=== PATIENT | female | born 1960 | race Caucasian/White ===

== ENCOUNTER 2017-11-21 09:44 | Outpatient (REF) | payer BC, SELFPAY ==
--- NOTE | 2017-11-21 09:20 | SKI_PTH ---
PATIENT: Holly Diana LOC: [facility] U#:[id number] AGE/SX: 57/F ROOM: RE11/21/[address]: Tanner Ortega DO : 1960 BED: DIS: 11/21/2017 SPEC #: [id number] RECD: 11/21/17 12:45 STATUS: CHRISTOPH WARREN #: [id number] STEF: 11/21/17 09:[address]: Tanner Ortega DEPT: Surgical Specimen RECD BY: Cassandra Rodriguez Tissues: 1 - SKIN BIOPSY(SHAVE/PUNCH) Procedures: SKIN LEVEL 4 Comments: [id number]
== END 2017-11-21 10:04 ==
LOC: LBN 09:44
PROVIDERS: PCP Emergency Medicine; Visit Provider Emergency Medicine
DX: L82.1 Other seborrheic keratosis (principal)
CPT/HCPCS: 88305

== ENCOUNTER 2018-02-19 01:36 | Outpatient (CLI) | payer BC, SELFPAY ==
--- NOTE | 2018-02-19 09:41 | DI.RAD_ITS ---
SYMPTOM/DIAGNOSIS: LEFT CHEST RALES R09.89 PA AND LATERAL CHEST: Comparison is made with 01 Apr 2011. The cardiac and mediastinal contours have a normal appearance. The lungs are well inflated and clear. No infiltrate or effusion is seen. There are no visible interstitial or emphysematous changes. IMPRESSION: Negative chest x-ray.
== END 2018-02-19 01:56 ==
PROVIDERS: PCP Emergency Medicine; Visit Provider Emergency Medicine
DX: R09.89 Other specified symptoms and signs involving the circulatory and respiratory systems (principal)
CPT/HCPCS: 71046

== ENCOUNTER 2018-02-26 01:56 | Outpatient (CLI) | payer BC, SELFPAY ==
[2018-02-26 09:16] LABS: Cholesterol 201 mg/dL (50-200); HDL Cholesterol 91 mg/dL (40-60); LDL CHOLESTEROL 94 mg/dL (<100); TSH 4.77 uIU/mL (0.358-3.74); Triglyceride 50 mg/dL (30-150)
== END 2018-02-26 02:16 ==
PROVIDERS: PCP Emergency Medicine; Visit Provider Student in an Organized Health Care Education/Training Program
DX: I47.1 Supraventricular tachycardia (principal)
CPT/HCPCS: 36415; 80061; 83721; 84443

== ENCOUNTER 2019-02-22 09:47 | Outpatient (CLI) | payer BC, SELFPAY | END 2019-02-22 10:07 | PROVIDERS: PCP Emergency Medicine; Visit Provider Nurse Practitioner | DX: R79.89 Other specified abnormal findings of blood chemistry (principal) | CPT/HCPCS: 36415; 84443 ==

== ENCOUNTER 2019-07-28 20:53 | Outpatient (REF) | payer BC, SELFPAY ==
[2019-07-28 20:39] LABS: TSH 1.82 uIU/mL (0.36-3.74)
== END 2019-07-28 21:13 ==
LOC: LBN 20:53
PROVIDERS: PCP Emergency Medicine; Visit Provider Nurse Practitioner Family
DX: R00.2 Palpitations (principal)
CPT/HCPCS: 84443

== ENCOUNTER 2019-08-03 01:43 | Outpatient (CLI) | payer BC, SELFPAY ==
--- NOTE | 2019-08-03 07:00 | DI.CT_ITS ---
EXAM: CT ABDOMEN PELVIS W CLINICAL HISTORY: RT SIDE ABD PAIN,R10.9 TECHNIQUE: Imaging Protocol: Axial computed tomography images with coronal and sagittal reformatted images were created and reviewed CONTRAST MATERIAL: Intravenous: Omnipaque 350 Contrast volume:83 mL Oral: Yes COMPARISON: CT ABD PELVIS WITH CONTRAST from 11/15/2010 CT ABD PELVIS WO CONTRAST from 04/01/2011 FINDINGS: ABDOMEN: Lung Bases: Normal where visualized. Liver: Normal density. No measurable mass. Several simple cysts. Portal, Superior Mesenteric, and Splenic Veins: Unremarkable. Gallbladder and Biliary Tract: No radiodense calculus or dilation. Pancreas: Normal density, no abnormal calcifications or inflammatory process. Spleen: Normal. Adrenals: No masses seen. Kidneys: Normal size, contour and axis. No radiodense stones or obstructive uropathy. No masses seen. Abdominal Aorta: Abdominal portion non-dilated. Atherosclerosis. Bowel: No obstruction or bowel wall thickening. No evidence of acute appendicitis. Peritoneal Cavity: No ascites, collection or mesenteric inflammatory response. Lymph Nodes: Within normal limits. Bones: Unremarkable. Soft Tissues: Unremarkable. PELVIS: Bladder: Symmetric distention, no gross wall thickening. Reproductive Organs: Status post hysterectomy. Lymph Nodes: Within normal limits. Bones: Within normal limits. IMPRESSION: No acute abdominal or pelvic process. RADIATION DOSE DELIVERED: 902.83mGy.cm Total DLP DATA REPOSITORY: All CT scans at this facility are submitted to the National Radiology Data Registry (NRDR) Dose Index Registry (DIR) with the [employer] (ACR). RADIATION OPTIMIZATION: All CT scans at this facility use at least one of these dose optimization te chniques: automated exposure control; mA and/or kV adjustment per patient size (includes targeted exa ms where dose is matched to clinical indication); or iterative reconstruction.
[2019-08-03] MEDS: Omnipaque 350 MG/ML 50 ML BTL PO (10:01)
[2019-08-03 10:10] LABS: CREATININE 1.12 mg/dL (0.55-1.02); Estimated GFR 49.62 (mL/min/1.73m2)
[2019-08-03] MEDS: Omnipaque 350 MG/ML 100 ML BTL IJ (10:37)
[2019-08-03] MEDS: Normal Saline Flush 10 ML SYR IVP (10:37)
== END 2019-08-03 02:03 ==
PROVIDERS: PCP Emergency Medicine; Visit Provider Nurse Practitioner Family
DX: R10.11 Right upper quadrant pain (principal); K76.89 Other specified diseases of liver
CPT/HCPCS: 74177; 82565; J3490; Q9967

== ENCOUNTER 2019-08-04 01:12 | Outpatient (CLI) | payer BC, SELFPAY | END 2019-08-04 01:32 | PROVIDERS: PCP Emergency Medicine; Visit Provider Nurse Practitioner Family | DX: I47.1 Supraventricular tachycardia (principal) | CPT/HCPCS: 93225 ==

== ENCOUNTER 2019-08-06 15:58 | Outpatient (CLI) | payer BC, SELFPAY ==
--- NOTE | 2019-08-10 08:53 | W.HOLTRPT ---
Date of service: 08/10/19 Time of Service: 08:53 Holter Monitor Report Holter Monitor Note: There is a 48-hour Holter monitor ordered for the indication of tachycardia. ?The patient was in normal sinus rhythm for the majority of the recording. Average heart rate was 78 bpm with a maximum heart rate of 137 bpm. ?There was 5 episodes of SVT with the longest lasting 4 beats. There were rare PACs. ?There were 0 episodes of ventricular tachycardia and 5 single PVCs. ?There were 0 episodes of atrial fibrillation no pauses greater than 3 seconds and no evidence of high degree heart block.
== END 2019-08-06 16:18 ==
PROVIDERS: PCP Emergency Medicine; Visit Provider Nurse Practitioner Family
DX: I47.1 Supraventricular tachycardia (principal)
CPT/HCPCS: 93226

== ENCOUNTER 2019-08-13 01:31 | Outpatient (CLI) | payer BC, SELFPAY ==
[2019-08-13 08:44] LABS: HCT 38.5 % (36.0-46.0); HGB 12.8 g/dL (12.0-15.5); Mean Corp. HGB Concentration 33.2 g/dL (32.0-36.0); Mean Corpuscular Volume 90.2 fL (80-95); Mean Platelet Volume 9.7 fL (8.0-11.0); Platelet Count 183 x1000/uL (130-400); RBC 4.27 m/cumm (4.00-5.20); White Blood Cell Count 3.95 k/cumm (4.4-10.8)
[2019-08-13 09:46] LABS: ALT 27 U/L (14-59); AST 19 U/L (15-37); Albumin 3.8 g/dL (3.4-5.0); Alkaline Phosphatase 62 U/L (46-116); Amylase 52 U/L (25-115); Anion Gap 4.5 mmol/L (3-11); BUN 19 mg/dL (7-18); Bilirubin, Total 0.4 mg/dL (0.2-1.0); CO2 31.5 mmol/L (21.0-32.0); CREATININE 1.17 mg/dL (0.55-1.02); Calcium 9.2 mg/dL (8.5-10.1); Chloride 103 mmol/L (98-107); Estimated GFR 47.18 (mL/min/1.73m2); Glucose 90 mg/dL (74-106); Lipase 178 U/L (73-393); Potassium 4.1 mmol/L (3.5-5.1); Sodium 139 mmol/L (136-145); Total Protein 6.9 g/dL (6.4-8.2)
== END 2019-08-13 01:51 ==
PROVIDERS: PCP Emergency Medicine; Visit Provider Emergency Medicine
DX: R10.9 Unspecified abdominal pain (principal)
CPT/HCPCS: 36415; 80053; 83690; 85027; 82150

== ENCOUNTER 2019-12-29 15:51 | Outpatient (CLI) | payer BC, SELFPAY ==
--- NOTE | 2019-12-29 13:25 | DI.RAD_ITS ---
EXAM: XR HIP RT COMPLETE AP PELVIS CLINICAL HISTORY: right hip pain. TECHNIQUE: 2D digital imaging was performed. COMPARISON: No exams were available for comparison FINDINGS: BONES: No acute fracture is present. No bony destructive lesion is seen. JOINTS: No dislocation present. SOFT TISSUE: Normal. IMPRESSION: Unremarkable radiographs of the right hip. Unremarkable radiographs of the pelvis. DATA REPOSITORY: RADIATION DOSE DELIVERED:
== END 2019-12-29 16:11 ==
PROVIDERS: PCP Emergency Medicine; Visit Provider Student in an Organized Health Care Education/Training Program
DX: M25.551 Pain in right hip (principal)
CPT/HCPCS: 73502

== ENCOUNTER 2020-02-17 09:39 | Outpatient (CLI) | payer BC, SELFPAY ==
[2020-02-19 16:38] LABS: COVID-19 RT-PCR Result NEGATIVE (Negative)
== END 2020-02-17 09:59 ==
PROVIDERS: PCP Emergency Medicine; Visit Provider Emergency Medicine
DX: Z20.828 Contact with and (suspected) exposure to other viral communicable diseases (principal)
CPT/HCPCS: U0003

== ENCOUNTER 2022-01-22 16:54 | Outpatient (REF) | payer BC, SELFPAY ==
[2022-01-23 13:12] LABS: HSV 1 DNA Result Positive (Negative); HSV 2 DNA Result Negative (Negative); Varicella Zoster DNA Result Negative ((See Note))
== END 2022-01-22 16:55 | disposition home or self-care (01) ==
LOC: LBN 16:54
PROVIDERS: PCP Nurse Practitioner Family; Visit Provider Nurse Practitioner Family
DX: B00.1 Herpesviral vesicular dermatitis (principal)
CPT/HCPCS: 87529; 87798

== ENCOUNTER 2022-08-06 10:37 | Outpatient (CLI) | payer BC, SELFPAY ==
--- NOTE | 2022-08-06 10:30 | RT.EKG_ITS ---
APPROVED REPORT Exam: Resting ECG Reason for Exam: lightheadedness Patient Location: O HR:70 bpm ECG Measurements Heart Rate 70 AXIS ME 123 P 76 QRSd 84 QRS 10 QT 397 T 41 QTc 429 Conclusion Sinus rhythm...normal P axis, V-rate 50- 99 Probable left atrial enlargement...P >50mS, <-0.10mV V1 Low voltage, extremity leads...all extremity leads <0.5mV Poor R wave progression
== END 2022-08-06 10:38 | disposition home or self-care (01) ==
LOC: DI.CM 10:38
PROVIDERS: PCP Nurse Practitioner Family; Visit Provider Nurse Practitioner Family
DX: I47.1 Supraventricular tachycardia (principal); R42 Dizziness and giddiness
CPT/HCPCS: 93010

== ENCOUNTER 2022-08-15 02:16 | Outpatient (CLI) | payer BC, SELFPAY ==
--- NOTE | 2022-08-15 05:51 | ETT_ITS ---
APPROVED REPORT Exam: Exercise Treadmill Patient Location: Out-Patient Room/Bed: Stress Nurse: Mahogany Dwyer RN Ordering Provider:NORMAN HINKLE, Contact Number: [phone] BMI: 22.29 Baseline Rhythm: Sinus Rhythm Indications: Other chest pain, PSVT, SVT Medical History Medical History: Anxiety, elevated TSH, palpitations, SVT, GERD Cardiac Medications: Diltiazem, pepcid, sertraline Allergies: Paroxetine HCL Cardiac Risk Factors: +Family history Previous Cardiac Procedures: None Pretest Chest Pain Characteristics: None Exercise History: Indeterminate Physical Disabilities: None Lung Sounds: Clear to air, bilaterally Heart Sounds: S1/S2, regular Stress Test Details Test: Exercise stress testing was performed using a Emmett protocol. Rest Stress HR Resting HR Supine: 68 bpm Max Heart Rate (APMHR): 157 bpm Resting HR Standin bpm Target HR (85% APMHR): 133 bpm Max HR Achieved: 150 bpm % of APMHR: 96 Recovery HR: 88 bpm HR response to stress: Normal HR response to stress BP Resting BP Supine: 130/68 mmHg Resting BP Standin/78 mmHg Max BP: 188/54 mmHg Recovery BP: 132/70 mmHg BP response to stress: Normal blood pressure response to stress. ECG Resting ECG: Sinus Rhythm, nonspecific ST-T abnormalities @ rest Ectopy: None Stress ECG: Sinus Tachycardia ST Change: Upsloping ST depression Lead(s): II, III, aVF, V4, V5, V6 Stage: I Maximum ST Deviation: 2 mm Arrhythmia: None Recovery ECG: Sinus Rhythm Recovery ST Change: Upsloping ST depression Lead(s): II, III, aVF, V4, V5,V6 Recovery ST Deviation: 1-2 mm Recovery Arrhythmia: rare PVC, PAC's Comment: ST depression returned to baseline prior to patient discharge Clinical Reason for Termination: Dyspnea Stress Symptoms: Dyspnea Exercise duration: 5 min17 sec Highest Stage Reached: Stage 2: 2.5 mph at 12% grade. Exercise capacity: 7.05 METs Angina Score: None Cook Treadmill Score: 4.2 Rate Pressure Product: [id number] Stress ECG Conclusion 1. The resting electrocardiogram showed minimal diffuse ST depressions 2. Patient exercised on the Emmett protocol completed a workload of 7.05 METS, limited by shortness of breath 3. Normal heart rate and blood pressure response to exercise. Patient achieved 97% of predicted hear t rate for age 4. Peak exercise there was J-point depression and upsloping ST segments which did not meet criteria f or myocardial ischemia. In recovery there was mild diffuse horizontal ST depression 1 to 2 mm which resolved by minute 10 of recovery 5. There were no significant dysrhythmias 6. Suggest repeat with imaging, either stress echocardiogram or myocardial perfusion imaging if clini taras indicated Cook Treadmill Score is 4.2 which is Moderate risk. Stress Test Summary STAGE Time (mins) Speed (mph) Grade (%) HR BP SpO2 SYMPTOMS METS Supine 68 130/68 Standing 80 132/78 1 3 1.7 10 132 148/68 4.5 2 6 2.5 12 150 moderate-severe shortness of breath 7 1 min recovery 103 160/62 3 min recovery 94 188/54 shortness of breath relieved 6 min recovery 90 132/70 9 min recovery 88 Patient presented with no symptoms prior to test. Nearing the end of stage 1 she reported mild shortn ess of breath that progressed to moderate-severe shortness of breath into stage 2. ST abnormality not ed at rest (slight depression, 0.[address] depression significantly increased during exercise (1-2 mm ) and patient denied any chest discomfort, tightness, or heaviness. Patients only symptom noted to be dyspnea. Patient recovered quickly with rest and ST changes returned to baseline. Patient tolerated test well, no adverse signs or symptoms noted. consulted prior to patient discharge.
== END 2022-08-15 02:36 ==
PROVIDERS: PCP Nurse Practitioner Family; Visit Provider Nurse Practitioner Family
DX: I47.1 Supraventricular tachycardia (principal); R07.89 Other chest pain
CPT/HCPCS: 93017

== ENCOUNTER 2022-08-16 05:05 | Emergency (ER) | payer BC, SELFPAY ==
[2022-08-16] VITALS (53 sets, daily range): BP systolic 117–145; BP diastolic 63–71; PULSE 65–94; RESP 8–24; TEMP 36.8; O2SAT 90–100
--- NOTE | 2022-08-16 05:00 | RT.EKG_ITS ---
APPROVED REPORT Exam: Resting ECG Reason for Exam: chest tightness Patient Location: E HR:73 bpm ECG Measurements Heart Rate 73 AXIS NH 130 P 73 QRSd 83 QRS -8 QT 389 T 37 QTc 429 Conclusion Sinus rhythm...normal P axis, V-rate 60- 99 Probable left atrial enlargement...P >50mS, <-0.10mV V1 Low voltage, extremity leads...all extremity leads <0.5mV
--- NOTE | 2022-08-16 05:28 | W.ED.GENAD ---
Discharge Plan Disposition Condition: Stable Discharge Details Chief Complaint: Chest Pain Clinical Impression: Chest pain Primary Care Provider: Twyla Romano ED Provider: Mike Chris Home Meds and New Rx's Prescriptions: No Action polyethylene glycol 3350 [Miralax] 17 gram/dose powder 17 g PO DAILY PRN (Reason: constipation) famotidine [Pepcid] 20 mg tablet 20 mg PO DAILY immunosupport PO DAILY lorazepam [Ativan] 0.5 mg tablet 0.5 mg PO DAILY MDD 0.5mg PRN (Reason: anxiety) Qty: 5 0RF Rx Instructions: Take half tablet by mouth as needed for anxiety/panic cholecalciferol (vitamin D3) 400 unit capsule 400 unit PO DAILY estradiol 0.01 % (0.1 mg/gram) cream 1 gm VG DIRECTED Patient Comments: 0.5 mg as directed Lactobacillus acidophilus 10 billion cell capsule PO DAILY metronidazole 1 % gel 1 applic TP DAILY PRN valacyclovir 1 gram tablet 1,000 mg PO TID sertraline 50 mg tablet 25 mg PO DAILY diltiazem HCl 120 mg capsule,extended release 24hr 120 mg PO DAILY Qty: 90 3RF diltiazem HCl 30 mg tablet 30 mg PO PRN Qty: 20 1RF Medical Decision Making 61 yo female with hx of anxiety, svt on diltiazem, who comes in with chest pressure and dyspnea starting an hour or so ago. She had a similar episode a week ago and saw her pcp for a routine visit. She was referred for treadmill stress test which was done yesterday which was inconclusive and had to be stopped due to patient having dyspnea. She woke up with similar pain and dyspnea as last week so came here. She denies fevers, chills, no diaphoresis, no radiation of pain. She denies history of smoking, states her father has had an [place] was but was after a surgery. She arrives hemodynamically stable and appears well in no distress, caox4 with clear speech, normal gait. She has clear lung sounds, no murmurs, no jvd, no leg swelling or calf tenderness. EKG with st depressions in lateral and inferior leads and <1mm st elevation in avr. Concern for angina vs nstemi, will administer aspirin, obtain cbc, cmp, troponin. She has no findings on exam to suggest dvt but given her associated shortness of breath as well will obtain d dimer, she is well score low. No tearing back pain and normal peripheral pulses and equal on each arm so doubt dissection. pt stable, first set of labs unremarkable and xray on my read negative, will obtain delta troponin Differential Diagnosis Differential Diagnosis: acs, anxiety, angina Medical Records Medical records reviewed: Yes I reviewed the patient's medical records. Imaging Data Radiologic Study: Attestation: I personally reviewed and interpreted this imaging study as follows: Imaging: X-Ray My impression: no acute findings Lab Data Lab results reviewed: Yes I reviewed the patient's lab results. ECG Data Attestation: I personally reviewed and interpreted this ECG (s) as follows: Prior ECG tracings: available for review Interpretation: st depressions in lateral and inferior leads, possible minimal elevation in avr, sinus with rate of 73, pr 130, qtc 429 HPI General Mode of arrival: ambulatory. Date/Time Provider Initiated Documentation: 08/16/22 05:06. Limitations to Documentation: no limitations. Information obtained by: patient. History of Present Illness 61 year old F presents to the emergency department with the chief complaint of chest pressure, described as moderate, Quality is described as other (pressure), and is localized to the chest. Patient reports no radiation. Patient started experiencing this hour(s) (1) and it has been constant. No relieving factors improve symptom(s), No exacerbating factors reported . Patient notes shortness of breath. Patient did receive the following treatments prior to arrival, none Related Data Home Medications Medication Instructions Recorded Confirmed Lactobacillus acidophilus 10 cell PO DAILY 11/20/17 08/06/22 billion cell capsule cholecalciferol (vitamin D3) 10 400 unit PO DAILY 11/20/17 08/16/22 mcg (400 unit) capsule estradiol 0.01% (0.1 mg/gram) 1 gm vaginal DIRECTED 11/20/17 08/16/22 vaginal cream metronidazole 1 % topical gel 1 applic topical DAILY PRN 03/06/18 08/16/22 famotidine 20 mg tablet (Pepcid) 20 mg PO DAILY 07/28/20 08/16/22 polyethylene glycol 3350 17 17 g PO DAILY PRN constipation 07/28/20 08/16/22 gram/dose oral powder (Miralax) diltiazem HCl 30 mg tablet 30 mg PO PRN #20 tabs 08/11/20 08/16/22 diltiazem HCl 120 mg 120 mg PO DAILY #90 caps 01/28/22 08/16/22 capsule,extended release 24 hr sertraline 50 mg tablet 25 mg PO DAILY 01/28/22 08/16/22 valacyclovir 1 gram tablet 1,000 mg PO TID 01/28/22 08/16/22 immunosupport PO DAILY 08/06/22 08/06/22 lorazepam 0.5 mg tablet (Ativan) 0.5 mg PO DAILY PRN anxiety #5 tabs 08/06/22 08/16/22 Previous Rx's Medication Instructions Recorded diltiazem HCl 30 mg tablet 30 mg PO PRN #20 tabs 08/11/20 diltiazem HCl 120 mg 120 mg PO DAILY #90 caps 01/28/22 capsule,extended release 24 hr lorazepam 0.5 mg tablet (Ativan) 0.5 mg PO DAILY PRN anxiety #5 tabs 08/06/22 Allergies Allergy/AdvReac Type Severity Reaction Status Date / Time paroxetine HCl [From Paxil] AdvReac Mild Jiiters Verified 08/16/22 05:15 General Stated Complaint: Chest Pain MICHAEL: 2 Review of Systems All systems reviewed & are unremarkable except as noted in HPI and below Constitutional Constitutional: Denies chills, Denies fever(s) and Denies weakness Cardiovascular Cardiovascular: Reports chest pain and Reports dyspnea Respiratory Respiratory: Denies cough and Reports dyspnea Gastrointestinal Gastrointestinal: Denies abdominal pain, Denies nausea and Denies vomiting Genitourinary Genitourinary: Denies dysuria Musculoskeletal Musculoskeletal: Denies joint swelling Integumentary/Breasts Skin/Breast: Denies rash Neurologic Neurologic: Denies weakness [facility] All Active Problems (Updated 08/16/22 @ 06:48 by Mike Chris MD) Chest pain (Acute) Trochanteric bursitis (Acute) Anxiety (Chronic) Elevated TSH (Acute) Rhinitis (Acute) Rosacea (Acute) Polyp of colon (Acute 02/13/11) DR. CONNOR; ?1-2 MM CECAL POLYP, SCATTERED SIGMOID DIVERTICULOSIS Palpitations (Acute) narrow complex SVT PSVT (paroxysmal supraventricular tachycardia) (Acute 11/05/17) Migraine equivalent (Acute 07/26/15) Gastroesophageal reflux disease with esophagitis (Acute 02/13/11) DR. 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 CONNOR EGD - MAC 2010 History of appendectomy History of esophagogastroduodenoscopy History of unilateral oophorectomy Partial Vaginectomy 12/01 [facility] [place] Status post vaginal hysterectomy Vaginal hysterectomy (08/13/11) STILL HAS OVARIES Family History Mother Essential hypertension Hyperlipidemia Asthma Father Alcohol abuse Heart disease [place] Neoplasm THROAT Sister No problems noted. Sister No problems noted. Grandfather Alzheimer's disease Grandfather Essential hypertension Heart disease Grandmother Essential hypertension Heart disease Hyperlipidemia Neoplasm THROAT Grandmother Heart disease Neoplasm LUNG/OROPHARYNX PATERNAL UNCLE Neoplasm THROAT Son No problems noted. Son Hyperlipidemia Social History Smoking/Tobacco Use Status: Never Tobacco: How many years used: 0 Smoking risk assessment performed?: Yes Alcohol Intake: current Alcohol Intake frequency: a few times a month Drug use: Never Substance use type: does not use Household members: other Details: 2 current occupation: RN Pets and animals: No Current gender identity: female Duration: 15-30 minutes/day Frequency: 1-2 times per week Haley/Buddhist: Synagogue Special haley needs: No Exam Const General: no acute distress Orientation: alert HENMT Head: normal to inspection Ears: external ears normal General nose exam: external nose normal Mouth: moist mucous membranes Eyes General: appearance normal, both eyes and all related structures Neck Neck: normal visual inspection Resp Effort & Inspection: normal respiratory effort and able to speak in complete sentences Auscultation: clear to auscultation bilaterally Cardio Jugular venous pressure: no JVD Rate: regular rate Heart Sounds: no murmurs Skin General skin exam: no rashes or lesions noted Neuro General: patient alert and patient oriented x3 Extrem General: normal to inspection Right lower extremity: no edema Left lower extremity: no edema Psych Mental Status: mental status grossly normal Course Vital Signs Vital signs: Vital Signs Temperature 36.8 C 08/16/22 05:11 Pulse 85 08/16/22 05:11 Respiratory Rate 18 08/16/22 05:11 Blood Pressure 145/71 H 08/16/22 05:11 Pulse Oximetry 100 08/16/22 05:11 Temperature 36.8 C 08/16/22 05:11 Temperature Source Oral 08/16/22 05:11 Pulse 85 08/16/22 05:11 Respiratory Rate 19 08/16/22 05:20 Respiratory Effort Normal 08/16/22 05:20 Respiratory Depth Normal 08/16/22 05:20 Blood Pressure 145/71 H 08/16/22 05:11 Blood Pressure Position Supine 08/16/22 05:11 Pulse Oximetry 100 08/16/22 05:11 Oxygen Delivery Method Room Air 08/16/22 05:11 Oxygen Flow Rate 0 08/16/22 05:11 Pain Level 2 08/16/22 05:20
[2022-08-16] MEDS: Aspirin 81 MG CHEW 324 MG CH (05:30)
[2022-08-16 05:35] LABS: Abs Immature Grans 0.02 10^3/uL (0.0-0.06); Absolute Basophil Count 0.03 10^3/uL (0.0-0.2); Absolute Eosinophil Count 0.12 10^3/uL (0.0-0.7); Absolute Lymphocyte Count 1.32 10^3/uL (1.2-3.4); Absolute Monocyte Count 0.58 10^3/uL (0.1-0.8); Absolute Neutrophil Count 3.38 10^3/uL (1.2-6.7); Basophils % 0.6; Eosinophils % 2.2; HCT 40.5 % (36.0-46.0); HGB 13.5 g/dL (11.2-15.7); Immature Grans % 0.4; Lymphocytes % 24.2; MCH 29.7 pg (27.0-33.0); MCHC 33.3 % (32.0-36.0); MCV 89 fL (80-95); MPV 9.4 fL (8.0-11.0); Monocytes % 10.6; Platelet Count 176 10^3/uL (130-400); RBC 4.55 10^6/uL (3.93-5.22); RDW 12.2 % (11.7-14.6); RDW-SD 39.7 fL; WBC 5.45 10^3/uL (4.4-10.8)
[2022-08-16 05:46] LABS: ALT 26 U/L (14-59); AST 18 U/L (15-37); Albumin 3.7 g/dL (3.4-5.0); Alkaline Phosphatase 80 U/L (46-116); Anion Gap 7.6 mmol/L (3-11); BUN 16 mg/dL (7-18); Bilirubin, Total 0.2 mg/dL (0.2-1.0); CO2 30.4 mmol/L (21.0-32.0); CREATININE 0.9 mg/dL (0.55-1.02); Calcium 9.1 mg/dL (8.5-10.1); Chloride 104 mmol/L (98-107); Estimated GFR 71.83 (mL/min/1.73m2); Glucose 103 mg/dL (74-106); Potassium 3.5 mmol/L (3.5-5.1); Sodium 142 mmol/L (136-145); Total Protein 7.3 g/dL (6.4-8.2); Troponin I < 50 ng/L (<or=60)
--- NOTE | 2022-08-16 06:00 | DI.RAD_ITS ---
Exam(s) XR PORTABLE CHEST AP EXAM: XR PORTABLE CHEST AP CLINICAL HISTORY: chest pain TECHNIQUE: 2D digital imaging was performed. COMPARISON: CR XR CHEST 2V PA LATERAL from 02/19/2018 FINDINGS: LUNGS: Clear. No pleural abnormality seen. HEART: Normal size. AORTA: Normal diameter. BONES: Unremarkable for age. Soft tissues: Unremarkable. IMPRESSION: No acute findings. DATA REPOSITORY: RADIATION DOSE DELIVERED:
[2022-08-16 06:02] LABS: D-Dimer 477 ng/mlFEU (<500)
--- NOTE | 2022-08-16 08:46 | DI.VRAD_ITS ---
PROCEDURE INFORMATION: Exam: XR Chest Exam date and time: 08/16/2022 6:18 AM Age: 61 years old Clinical indication: Chest wall pain; Additional info: Chest pain TECHNIQUE: Imaging protocol: Radiologic exam of the chest. Views: 1 view. COMPARISON: CR XR CHEST 2V PA LATERAL 02/19/2018 9:46 AM FINDINGS: Lungs: Unremarkable. No consolidation. Pleural spaces: Unremarkable. No pleural effusion. No pneumothorax. Heart/Mediastinum: The cardiomediastinal silhouette is fairly stable in appearance. Bones/joints: Unremarkable. IMPRESSION: No evidence for acute pulmonary disease. Dictated and Authenticated by: Mike Atkins MD. Ordering:CAMMIE Mckeon MD
[2022-08-16 08:49] LABS: Troponin I < 50 ng/L (<or=60)
--- NOTE | 2022-08-16 10:30 | RT.EKG_ITS ---
APPROVED REPORT Exam: Resting ECG Reason for Exam: chest pain Patient Location: E HR:69 bpm ECG Measurements Heart Rate 69 AXIS NJ 127 P 74 QRSd 85 QRS -3 QT 392 T 39 QTc 421 Conclusion Sinus rhythm...normal P axis, V-rate 60- 99 Probable left atrial enlargement...P >50mS, <-0.10mV V1 Low voltage, extremity leads...all extremity leads <0.5mV st dep inf lat
[2022-08-16] MEDS: Clopidogrel 300 MG TAB 600 MG PO (10:46)
--- NOTE | 2022-08-16 10:55 | W.EDPROG ---
Date of service: 08/16/22 Time of Service: 11:04 Medical Decision Making Care was signed out by Dr. Chris with plan to follow-up on delta troponin. Delta troponin negative. I spoke with Dr. Anand, on-call string winding machine operator, discussed ED presentation course and she was aware of stress study from yesterday. She recommends transfer to [facility] given inability to perform dedicated stress test here and very today. I contacted [facility] transfer center to request transfer. I spoke with string winding machine operator Nuha, discussed ED presentation and course, she will accept the patient on behalf of of Dr. Walker. She does recommend Plavix load as well as heparin infusion. This Patient reassessed and currently pain-free. Of note, patient states that she has had intermittent bloody stool this status post radiation therapy. This has been intermittent and chronic. She last experienced bloody stools a couple weeks ago. No current rectal bleeding. I will withhold heparin bolus but initiate infusion. Discussed treatment plan recommendations she provided informed consent. Lab Data Lab results reviewed: Yes I reviewed the patient's lab results. Labs: Laboratory Tests Range/Units 08/16/22 08/16/22 08/16/22 05:25 05:25 05:25 WBC (4.4-10.8) 10^3/uL 5.45 RBC (3.93-5.22) 10^6/uL 4.55 Hgb (11.2-15.7) g/dL 13.5 Hct (36.0-46.0) % 40.5 MCV (80-95) fL 89 MCH (27.0-33.0) pg 29.7 MCHC (32.0-36.0) % 33.3 RDW (11.7-14.6) % 12.2 Plt Count (130-400) 10^3/uL 176 MPV (8.0-11.0) fL 9.4 Immature Gran % 0.4 Neutrophils % 62.0 Lymphocytes % 24.2 Monocytes % 10.6 Eosinophils % 2.2 Basophils % 0.6 Nucleated RBC % (0.0-0.3) % 0.0 Absolute Neutrophils (1.2-6.7) 10^3/uL 3.38 Absolute Lymphocytes (1.2-3.4) 10^3/uL 1.32 Absolute Monocytes (0.1-0.8) 10^3/uL 0.58 Absolute Eosinophils (0.0-0.7) 10^3/uL 0.12 Absolute Basophils (0.0-0.2) 10^3/uL 0.03 D-Dimer (<500) ng/mlFEU 477 Sodium (136-145) mmol/L 142 Potassium (3.5-5.1) mmol/L 3.5 Chloride (98-107) mmol/L 104 Carbon Dioxide (21.0-32.0) mmol/L 30.4 Anion Gap (3-11) mmol/L 7.6 BUN (7-18) mg/dL 16 Creatinine (0.55-1.02) mg/dL 0.9 Est GFR (CKD-EPI 2020) (mL/min/1.73m2) 71.83 Glucose (74-106) mg/dL 103 Calcium (8.5-10.1) mg/dL 9.1 Magnesium (1.8-2.4) mg/dL 2.0 Total Bilirubin (0.2-1.0) mg/dL 0.2 AST (15-37) U/L 18 ALT (14-59) U/L 26 Alkaline Phosphatase (46-116) U/L 80 Troponin I (<or=60) ng/L < 50 Total Protein (6.4-8.2) g/dL 7.3 Albumin (3.4-5.0) g/dL 3.7 Range/Units 08/16/22 08:17 WBC (4.4-10.8) 10^3/uL RBC (3.93-5.22) 10^6/uL Hgb (11.2-15.7) g/dL Hct (36.0-46.0) % MCV (80-95) fL MCH (27.0-33.0) pg MCHC (32.0-36.0) % RDW (11.7-14.6) % Plt Count (130-400) 10^3/uL MPV (8.0-11.0) fL Immature Gran % Neutrophils % Lymphocytes % Monocytes % Eosinophils % Basophils % Nucleated RBC % (0.0-0.3) % Absolute Neutrophils (1.2-6.7) 10^3/uL Absolute Lymphocytes (1.2-3.4) 10^3/uL Absolute Monocytes (0.1-0.8) 10^3/uL Absolute Eosinophils (0.0-0.7) 10^3/uL Absolute Basophils (0.0-0.2) 10^3/uL D-Dimer (<500) ng/mlFEU Sodium (136-145) mmol/L Potassium (3.5-5.1) mmol/L Chloride (98-107) mmol/L Carbon Dioxide (21.0-32.0) mmol/L Anion Gap (3-11) mmol/L BUN (7-18) mg/dL Creatinine (0.55-1.02) mg/dL Est GFR (CKD-EPI 2020) (mL/min/1.73m2) Glucose (74-106) mg/dL Calcium (8.5-10.1) mg/dL Magnesium (1.8-2.4) mg/dL Total Bilirubin (0.2-1.0) mg/dL AST (15-37) U/L ALT (14-59) U/L Alkaline Phosphatase (46-116) U/L Troponin I (<or=60) ng/L < 50 Total Protein (6.4-8.2) g/dL Albumin (3.4-5.0) g/dL Critical Care Time Critical Care Time Critical Care Time: Yes Total Critical Care Time: 40 Attestation: I spent greater than 40 minutes addressing this patient's immediate life threats. Please see MDM section of note. This time was spent engaged in work directly related to the patient's care, exclusive of separate procedures, and failure to initiate these interventions would have likely resulted in clinically significant or life threatening deterioration in the patient's condition. Discharge Plan Disposition Patient Disposition: Transfer-Acute Inpatient Care Specific Acute Inpt Facility: [facility] Condition: Stable Discharge Details Clinical Impression: Chest pain, Paroxysmal supraventricular tachycardia Primary Care Provider: Twyla Romano ED Provider: Bi Kang Home Meds and New Rx's Prescriptions: No Action polyethylene glycol 3350 [Miralax] 17 gram/dose powder 17 g PO DAILY PRN (Reason: constipation) famotidine [Pepcid] 20 mg tablet 20 mg PO DAILY immunosupport PO DAILY lorazepam [Ativan] 0.5 mg tablet 0.5 mg PO DAILY MDD 0.5mg PRN (Reason: anxiety) Qty: 5 0RF Rx Instructions: Take half tablet by mouth as needed for anxiety/panic cholecalciferol (vitamin D3) 400 unit capsule 400 unit PO DAILY estradiol 0.01 % (0.1 mg/gram) cream 1 gm VG DIRECTED Patient Comments: 0.5 mg as directed Lactobacillus acidophilus 10 billion cell capsule PO DAILY metronidazole 1 % gel 1 applic TP DAILY PRN valacyclovir 1 gram tablet 1,000 mg PO TID diltiazem HCl 30 mg tablet 30 mg PO PRN Qty: 20 1RF sertraline 50 mg tablet 50 mg PO DAILY diltiazem HCl 120 mg capsule,extended release 24hr 120 mg PO DAILY Qty: 90 3RF Rx Instructions: increased at [facility] hospitalization to 120 mg BID 08/19/22 Discharge Data Discharge Date/Time-TO BE ENTERED AT DEPARTURE: 08/16/22 14:13
[2022-08-16 11:28] LABS: PTT Activated 23.7 sec (21.5-31.9)
== END 2022-08-16 14:13 | disposition short-term general hospital (02) ==
PROVIDERS: Emergency Medicine; Emergency Provider Student in an Organized Health Care Education/Training Program; PCP Nurse Practitioner Family
DX: R07.9 Chest pain, unspecified (principal); I47.1 Supraventricular tachycardia; R06.09 Other forms of dyspnea
CPT/HCPCS: 80053; 93005; 96365; 96366; 99291; 71045; 83735; 84484; 85025; 85379; 85730; 93010

== ENCOUNTER 2022-09-10 07:53 | Outpatient (CLI) | payer BC, SELFPAY ==
--- NOTE | 2022-09-10 07:45 | RT.EKG_ITS ---
APPROVED REPORT Exam: Resting ECG Reason for Exam: CP, palpitations Patient Location: O HR:75 bpm ECG Measurements Heart Rate 75 AXIS NM 118 P 72 QRSd 159 QRS -9 QT 461 T 9 QTc 515 Conclusion Sinus rhythm...normal P axis, V-rate 50- 99 Low voltage Poor R wave progression
== END 2022-09-10 07:54 | disposition home or self-care (01) ==
LOC: DI.CARD 07:53
PROVIDERS: PCP Nurse Practitioner Family; Visit Provider Internal Medicine Cardiovascular Disease
DX: I47.1 Supraventricular tachycardia (principal); R00.2 Palpitations; R07.9 Chest pain, unspecified
CPT/HCPCS: 93010

== ENCOUNTER 2024-01-05 00:45 | Outpatient (CLI) | payer MEDICARE, BC, SELFPAY ==
--- NOTE | 2024-01-05 06:30 | DI.DEXA_ITS ---
Exam(s) XR DEXA BONE DENSITY W/WO RIKA EXAM: XR DEXA BONE DENSITY W/WO RIKA CLINICAL HISTORY: osteoporosis screening, menopausal disorder, n95.9 TECHNIQUE: Routine DEXA evaluation of the lumbar spine, hip, or forearm. COMPARISON: No exams were available for comparison FINDINGS: Performed on a Hologic unit. Lateral image: No compression fracture evident. Lumbar Spine total T-score: -0.3 Hip total T-score:-0.6 Independent reading at the level of the femoral neck yields T-score of -0.5 Forearm total T-score: -0.8 IMPRESSION: Bone mineral density measures in the normal range. Fracture risk is low. Note: Any spine fracture indicates 5x risk for subsequent spine fracture and 2x risk for subsequent h ip fracture. World Health Organization criteria for BMD interpretation classify patients: Normal...... T- Score at or above -1.0 Osteopenic... T- Score between -1.0 and -2.5 Osteoporosis... T-Score at or below -2.5
== END 2024-01-05 01:05 ==
LOC: DI 00:45
PROVIDERS: PCP Nurse Practitioner Family; Visit Provider Nurse Practitioner Family
DX: N95.9 Unspecified menopausal and perimenopausal disorder (principal); Z13.820 Encounter for screening for osteoporosis
CPT/HCPCS: 77080

== ENCOUNTER 2024-11-09 15:39 | Outpatient (CLI) | payer MEDICARE, BC, SELFPAY ==
--- NOTE | 2024-11-09 15:03 | DI.RAD_ITS ---
Exam(s) XR KNEE RT 3V AP,LAT,LIZETH EXAM: XR KNEE RT 3V AP,LAT,LIZETH CLINICAL HISTORY: knee pain after fall, KNEE PAIN AFTER FALL S80.00XA. TECHNIQUE: 2D digital imaging was performed. COMPARISON: No exams were available for comparison FINDINGS: 3 views No evidence acute fracture nor prominent joint effusion. No degenerative changes evident. Bone density normal. No osseous lesions. IMPRESSION: No significant osseous findings in the right knee. No joint space narrowing. DATA REPOSITORY: RADIATION DOSE DELIVERED:
== END 2024-11-09 15:59 ==
LOC: DI 15:41
PROVIDERS: PCP Nurse Practitioner Family; Visit Provider Family Medicine
DX: S80.01XA Contusion of right knee, initial encounter (principal); X58.XXXA Exposure to other specified factors, initial encounter
CPT/HCPCS: 73562

== ENCOUNTER 2024-12-22 03:55 | Outpatient (CLI) | payer MEDICARE, BC, SELFPAY ==
[2024-12-22 08:47] LABS: Hemoglobin A1C 5.2 % (<5.7)
[2024-12-22 09:40] LABS: ALT 26 U/L (14-59); AST 30 U/L (15-37); Albumin 3.7 g/dL (3.4-5.0); Alkaline Phosphatase 85 U/L (46-116); Anion Gap 10.5 mmol/L (3-11); BUN 17 mg/dL (7-18); Bilirubin, Total 0.4 mg/dL (0.2-1.0); CO2 28.5 mmol/L (21.0-32.0); Calcium 9.2 mg/dL (8.5-10.1); Calculated LDL 116 mg/dL (<100); Chloride 103 mmol/L (98-107); Cholesterol 208 mg/dL (<200); Estimated GFR 70.51 (mL/min/1.73m2); Glucose 87 mg/dL (74-106); HDL Cholesterol 83 mg/dL (>or=50); Potassium 3.9 mmol/L (3.5-5.1); Sodium 142 mmol/L (136-145); Total Protein 7.3 g/dL (6.4-8.2); Triglyceride 49 mg/dL (<150)
== END 2024-12-22 03:56 | disposition home or self-care (01) ==
LOC: LBO 03:55
PROVIDERS: PCP Nurse Practitioner Family; Visit Provider Nurse Practitioner Family
DX: R73.01 Impaired fasting glucose (principal); Z00.00 Encounter for general adult medical examination without abnormal findings; F41.9 Anxiety disorder, unspecified; R79.89 Other specified abnormal findings of blood chemistry; L71.9 Rosacea, unspecified
CPT/HCPCS: 36415; 80053; 80061; 83036

== ENCOUNTER 2025-01-05 01:24 | Outpatient (CLI) | payer MEDICARE, BC, SELFPAY ==
--- NOTE | 2025-01-05 08:15 | DI.MAMMO_ITS ---
Exam(s) MAMMO SCREENING EXAM: MAMMO SCREENING CLINICAL HISTORY: screening,z12.39 TECHNIQUE: Bilateral full field digital CC and MLO mammographic images were obtained with 3D tomosynthesis and utilizing computer aided detection (CAD). COMPARISON: Comparison is made with prior examinations. FINDINGS: Masses/Architectural Distortion: No suspicious masses or areas of architectural distortion are present. The biopsy clip in the upper outer quadrant of the left breast is stable. Microcalcifications: No suspicious pleomorphic-type are seen. Skin Thickening/Nipple Retraction: None. IMPRESSION: 1. No significant interval change with no specific features of malignancy noted. 2. Unless there is more urgent need, screening mammography is recommended, as per [employer] [place] [employer] guidelines. BI-RADS Category 1 - Negative Breast Density - Category C - The breast are heterogeneously dense, which may obscure small masses. Breast density Category C or D implies that the patient has dense breast tissue. Dense breast tissue can make it harder to find cancer on a mammogram. Dense breast tissue is also associated with an increased risk of breast cancer. This information about the result of the mammogram report was provided to the patient to raise their awareness. Use this report when you speak with the patient about their risks for breast cancer, which includes their family history. At that time, you may recommend additional screening tests (Ultrasound or MRI) as these tests may add significant information. A negative radiographic report should not delay biopsy if a dominant or clinically suspicious mass is present. Up to ten percent of cancers are not identified on mammography. A negative report may reinforce clinical impression. Adenosis and dense breasts may obscure an underlying neoplasm. False positive reports average 6 to 10%. Patient will receive a letter notifying them of these results.
== END 2025-01-05 01:44 ==
LOC: DI 01:24
PROVIDERS: PCP Nurse Practitioner Family; Visit Provider Nurse Practitioner Family
DX: Z12.31 Encounter for screening mammogram for malignant neoplasm of breast (principal)
CPT/HCPCS: 77063; 77067

== ENCOUNTER → 2025-02-18 00:25 | Outpatient (CLI) | payer MEDICARE, BC, SELFPAY ==
--- NOTE | 2025-02-18 06:15 | DI.MRI_ITS ---
Exam(s) MR LOWER JOINT RT WO EXAM: MR LOWER JOINT RT WO CLINICAL HISTORY: ? potential meniscus involvement,RT KNEE PAIN, M25.561 TECHNIQUE: Multiplanar multisequence MRI of the knee was performed. COMPARISON: CR XR KNEE RT 3V AP,LAT,LIZETH from 11/09/2024 FINDINGS: EFFUSION: There is a moderate size knee joint effusion and there is a nonruptured shrestha cyst in the medial popliteal fossa which measures 3.3 cm craniocaudal by 0.8 cm AP by 1.4 cm wide. There are no loose intra-articular bodies evident in the knee joint space nor within the Shrestha cyst. MARROW:There is no evidence of fracture, bone contusion, nor osteochondral defects.. There are no significant osseous lesions. PATELLOFEMORAL COMPARTMENT: The quadriceps tendon is intact. The patellar ligament is intact. There is no significant thinning of the retropatellar cartilage. No evidence of fissure nor significant chondral defect. No osteochondral defect at this level.There is no intraosseous signal to suggest recent patellar dislocation. CRUCIATE LIGAMENTS: The anterior cruciate ligament is intact.The posterior cruciate ligament is intact. MEDIAL COMPARTMENT/MEDIAL MENISCUS: There is some myxoid degeneration signal in the posterior horn of the medial meniscus which does not violate an articular surface and therefore does not constitute a tear. There is mild increased signal within the meniscal root but no obvious tear. There is mild anterior extrusion of the anterior horn of the medial meniscus but without an obvious tear of this structure. There are no chondral defects, osteochondral defects, subarticular marrow edema, nor osteophytes evident. MEDIAL COLLATERAL LIGAMENT: There is significant signal abnormality in the superior aspect of the medial collateral ligament at its anterior attachment level to the outer aspect of the medial femoral condyle consistent with sprain and partial tearing. The main component band of the MCL exhibits mild sprain signal. There is no abnormal signal at the tibial attachment site. There is no fluid interposed between the deep and superficial layers of the MCL LATERAL COMPARTMENT/LATERAL MENISCUS: There is no evidence of lateral meniscal tear.There is mild thinning of the articular cartilage over the main weight- bearing surface of the lateral femoral condyle. There is no subarticular intraosseous edema in the lateral condyle nor within the subjacent lateral tibial plateau. No evidence of osteochondral defect and there are no marginal osteophytes in this compartment. ILIOTIBIAL BAND: Intact LATERAL COLLATERAL LIGAMENT COMPLEX: There is mild increased signal in the biceps femora wrists tendon attachment to the fibular styloid as well as within the fibular collateral ligament at this level. The popliteus tendon is intact. IMPRESSION: 1. There is signal abnormality in the superior aspect of the medial collateral ligament at its attachment site to the outer aspect of the medial femoral condyle consistent with sprain and partial tearing of the MCL at this level. 2. There is some signal abnormality in the posterior horn of the medial meniscus more in keeping with myxoid degeneration than tear as this intrameniscal signal does not violate an articular surface. There are minimal if any significant degenerative changes in the medial compartment. 3. No evidence of significant cruciate ligament tears nor tears of the quadriceps and patellar tendons and iliotibial band appears intact. 4. There is mild sprain signal in the biceps femora wrists tendon and fibular collateral ligament at the fibular styloid attachment consistent with mild sprain of these components of the lateral collateral ligament complex at this level. There is no high-grade tear of the structures. The popliteus muscle and tendon components of the LCL complex are intact. 5. There is a small-moderate size knee joint effusion and a Shrestha cyst in the medial popliteal fossa. There are no loose intra-articular bodies evident. DATA REPOSITORY:
== END ==
LOC: DI 00:25
PROVIDERS: PCP Nurse Practitioner Family; Visit Provider Nurse Practitioner Family
DX: M25.561 Pain in right knee (principal)
CPT/HCPCS: 73721